=== PATIENT | male | born 1945 | race Caucasian/White ===

== ENCOUNTER 2021-07-13 07:01 | Day surgery (SDC) | payer OTHER ==
[2021-07-08 14:34] VITALS: BMI 25.3
[2021-07-13] MEDS ORDERED: PROPOFOL 20 ML ONE ×4 (07:52)
[2021-07-13] MEDS ORDERED: LIDOCAINE HCL/PF 2% SDV 5ML VIAL ONE (07:52)
[2021-07-13 08:33] VITALS: TEMP 97.8
[2021-07-13 08:58] VITALS: BP 114/67; PULSE 68
== END 2021-07-13 08:58 | disposition home or self-care (01) ==
LOC: FASU-ENDO 07:01
PROVIDERS: ATTEND Internal Medicine Gastroenterology
PROC: 0DJD8ZZ Inspection of Lower Intestinal Tract, Via Natural or Artificial Opening Endoscopic (ICD-10-PCS; principal; 2021-07-13 08:10)
DX: Z12.11 Encounter for screening for malignant neoplasm of colon (principal); K57.30 Diverticulosis of large intestine without perforation or abscess without bleeding